=== PATIENT | female | born 1930 | race Caucasian/White ===

== ENCOUNTER 2016-12-21 09:45 | Emergency (ER) | payer MEDICARE ==
[2016-12-21 11:13] VITALS: BP 120/74
--- NOTE | 2016-12-21 11:20 | UC ---
Complaint Female HPI - HPI Summary HPI Summary: c/o burning and pressure, low back pain that started last week. Has been taking trimethoprim with no relief. FSBS this morning fasting- 154, 228 at 1000. multiple allergy to medications. can not check U/A here as patient on pyridium and trimethoprim twice daily from specialist in [place], numerous allergy to meds. can take cefuroxime per patient and her notes from her physician in [facility]. Would like to take that since her trimethoprim and pyridium not getting rid of infection. [ End ] - History Of Current Complaint Chief Complaint: UCGU Stated Complaint: URINARY COMPLAINT Time Seen by Provider: 12/21/16 11:16 Hx Obtained From: Patient Hx Last Menstrual Period: 1968 ?: No Onset/Duration: Gradual Onset Timing: Constant Severity Initially: Mild Severity Currently: Moderate Character: Burning Aggravating Factor(s): Urination Alleviating Factor(s): Nothing Associated Signs And Symptoms: Negative: Fever, Back Pain, Vaginal Bleeding/ Discharge, Vaginal Discharge, Nausea, Vomiting(# Of Episodes =) - Allergies/Home Medications Allergies/Adverse Reactions: Allergies Allergy/AdvReac Type Severity Reaction Status Date / Time Celecoxib [From Celebrex] Allergy Itching Verified 12/21/16 11:02 Ciprofloxacin Allergy Rash And Verified 12/21/16 11:02 Itching Doxycycline Allergy Nausea Verified 12/21/16 11:02 Nitrofurantoin Allergy Hives Verified 12/21/16 11:02 [From Macrobid] Sulfa Drugs Allergy Rash Verified 12/21/16 11:02 Tramadol Allergy Itching Verified 12/21/16 11:02 Amoxicillin [From Augmentin] AdvReac "belly Verified 12/21/16 11:02 ache" Clavulanic Acid AdvReac "belly Verified 12/21/16 11:02 [From Augmentin] ache" Metronidazole AdvReac stomach Verified 12/21/16 11:02 upset lidoderm patch Allergy Rash And Uncoded 12/21/16 11:02 Itching metanex Allergy Itching Uncoded 12/21/16 11:02 naproxen or combined with Allergy Unknown Uncoded 12/21/16 11:02 Detrol LA Reaction Details Home Medications: Home Medications Insulin GLARGINE(*) [Lantus(*)] 34 units SUBCUT Q24H 12/21/16 [History Confirmed 12/21/16] Insulin Lispro [Humalog] 4 unit SC DAILY 12/21/16 [History Confirmed 12/21/16] Phenazopyridine TAB* [Pyridium 100 mg TAB*] 100 mg PO TID 12/21/16 [History Confirmed 12/21/16] Trimethoprim TAB* 100 mg PO BID 12/21/16 [History Confirmed 12/21/16] PMH/Surg Hx/FS Hx/Imm Hx Previously Healthy: Yes Endocrine History Of: Reports: Diabetes - type 2 Cardiovascular History Of: Reports: 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 L4- L5, cardiac stent 08/29/14 Other Surgical History: recurrent UTI, goes to Urology - Family History Known Family History: Positive: None - Social History Occupation: Retired Lives: With Family Alcohol Use: None Substance Use Type: None Smoking Status (MU): Never Smoked Tobacco Household Exposure Type: Cigarettes - Immunization History Most Recent Influenza Vaccination: May 2013 Review of Systems Constitutional: Negative Skin: Negative Eyes: Negative ENT: Negative Respiratory: Negative Cardiovascular: Negative Gastrointestinal: Negative Genitourinary: Dysuria Motor: Negative Neurovascular: Negative Musculoskeletal: Negative Neurological: Negative Psychological: Negative All Other Systems Reviewed And Are Negative: Yes Physical Exam Triage Information Reviewed: Yes Appearance: Well-Appearing, No Pain Distress, Well-Nourished Vital Signs: Initial Vital Signs Temp 98.8 F 12/21/16 11:06 Pulse 72 12/21/16 11:06 Resp 20 12/21/16 11:06 BP 120/74 12/21/16 11:06 Pulse Ox 98 12/21/16 11:06 Vital Signs Reviewed: Yes Eye Exam: Normal ENT Exam: Normal Dental Exam: Normal Neck exam: Normal Neck: Positive: 1 Respiratory Exam: Normal Cardiovascular Exam: Normal Abdominal Exam: Normal Abdomen Description: Positive: Nontender, No Organomegaly, Soft. Negative: CVA Tenderness (R), CVA Tenderness (L), Distended, Guarding Musculoskeletal Exam: Normal Neurological Exam: Normal Psychological Exam: Normal Skin Exam: Normal Complaint Female Dx - Course Course Of Treatment: Recurrent UTI. Previously on trimethoprim for 2 years or longer. Since then has been taking med prn for about 2-3 weeks prn dysuria. SHe showed me a note from her medical history on 3x5 cards indicating she can tolerate cefuroxime and no resistance to this. She desires to start meds at this time and aware to f/u with PCP and Urology. - Differential Dx/Diagnosis Differential Diagnosis/HQI/PQRI: Ureteral Stone, Urinary Tract Infection Provider Diagnoses: Recurrent UTI Discharge - Discharge Plan Condition: Fair Disposition: HOME Prescriptions: Cefuroxime 500 MG(NF) 500 mg PO BID #20 tab Patient Education Materials: Urinary Tract Infection in Women (ED) Referrals: Crow WILKERSON,Tim Goldberg [Primary Care Provider] - 3 Days (Please follow up with you Urologist as well )
== END 2016-12-21 11:47 | disposition home or self-care (01) ==
LOC: UCCORT 09:45
DX: N39.0 Urinary tract infection, site not specified (principal); Z87.440 Personal history of urinary (tract) infections; E11.9 Type 2 diabetes mellitus without complications; Z79.4 Long term (current) use of insulin; Z95.0 Presence of cardiac pacemaker; R00.1 Bradycardia, unspecified; Z95.5 Presence of coronary angioplasty implant and graft; I10 Essential (primary) hypertension; J44.9 Chronic obstructive pulmonary disease, unspecified; Z88.1 Allergy status to other antibiotic agents; Z88.2 Allergy status to sulfonamides
CPT/HCPCS: 99212; G0463

== ENCOUNTER 2017-01-19 14:34 | Emergency (ER) | payer MEDICARE ==
[2017-01-19 15:03] VITALS: BP 139/66
--- NOTE | 2017-01-19 15:32 | ED ---
Throat Pain/Nasal Congestion - HPI Summary HPI Summary: Pt here w/ recurrent URI sx x 1 month. She has had throat irritation, CONNELLY and sinus pressure w/ otalgia and mild cough on/off x 1 month. Thinks she's getting better then gets worse again. Feels feverish today. Also noted a large drops of yellow/green mucous from her sinus passages into her throat yesterday and today - this relieved pressure each time, but pressure builds back up shortly after. She bought some nasacort today but has not tried this yet. She also admits she' s had allergies in the past this time of year - doesn't take an antihistamine for these. Denies chills, CONNELLY today, N/V/D, rash, ab pain, weakness, dyspnea. Feels everything is in her head and feels like a sinus infection. NOTE: DM has been poorly controlled over the past month - running 160's-230's. Has been working w/ her PCP to get this under better control. After discussion today, this elevation may be from persistent URI this past month. Sick contact - son with whom she lives. - History of Current Complaint Chief Complaint: UCRespiratory Time Seen by Provider: 01/19/17 15:10 Hx Obtained From: Patient - Allergies/Home Medications Allergies/Adverse Reactions: Allergies Allergy/AdvReac Type Severity Reaction Status Date / Time Celecoxib [From Celebrex] Allergy Itching Verified 01/19/17 15:02 Ciprofloxacin Allergy Rash And Verified 01/19/17 15:02 Itching Nitrofurantoin Allergy Hives Verified 01/19/17 15:02 [From Macrobid] Sulfa Drugs Allergy Rash Verified 01/19/17 15:02 Tramadol Allergy Itching Verified 01/19/17 15:02 Amoxicillin [From Augmentin] AdvReac "belly Verified 01/19/17 15:02 ache" Clavulanic Acid AdvReac "belly Verified 01/19/17 15:02 [From Augmentin] ache" Doxycycline AdvReac Nausea Verified 01/19/17 15:02 Metronidazole AdvReac stomach Verified 01/19/17 15:02 upset lidoderm patch Allergy Rash And Uncoded 12/21/16 11:02 Itching metanex Allergy Itching Uncoded 12/21/16 11:02 naproxen or combined with Allergy Unknown Uncoded 12/21/16 11:02 Detrol LA Reaction Details PMH/Surg Hx/FS Hx/Imm Hx Previously Healthy: Yes Endocrine/Hematology History: Reports: 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 Cardiovascular History: Reports: Hx Hypertension Respiratory History: Reports: Hx Chronic Obstructive Pulmonary Disease (COPD) Denies: Hx Lung Cancer GI History: Denies: Hx Urosepsis History: Denies: Hx Kidney Stones, Hx Renal Disease Sensory History: Reports: Hx Contacts or Glasses, Hx Hearing Aid Opthamlomology History: Reports: Hx Contacts or Glasses - Cancer History Cancer Type, Location and Year: Right breast mastectomy 1989 [facility] - Surgical History Surgery Procedure, Year, and Place: Right mastectomy 1989; appy, tubal 65, hysterectomy 69, bladder repair 80, kidney cysto , right hand tendon 87, 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 L4- L5, cardiac stent 08/29/14 Infectious Disease History: No Infectious Disease History: Reports: Hx Shingles - yr 1999 Denies: History Other Infectious Disease, Traveled Outside the [place] in Last 30 Days - Family History Known Family History: Positive: None - Social History Occupation: Retired Lives: With Family - son Alcohol Use: None Hx Substance Use: No Substance Use Type: Reports: None Hx Tobacco Use: No Smoking Status (MU): Never Smoked Tobacco Review of Systems Positive: Fever - see HPI. Negative: Chills Negative: Photophobia, Blurred Vision, Diplopia, Drainage, Erythema ENT: Other - see HPI Negative: Chest Pain Positive: Cough - see HPI. Negative: Shortness Of Breath Gastrointestinal: Negative Positive: no symptoms reported Musculoskeletal: Negative Skin: Negative Neurological: Negative Psychological: Normal All Other Systems Reviewed And Are Negative: Yes Physical Exam Triage Information Reviewed: Yes Vital Signs On Initial Exam: Initial Vitals Temp Pulse Resp BP Pulse Ox 99.4 F 72 16 139/66 97 01/19/17 14:57 01/19/17 14:57 01/19/17 14:57 01/19/17 14:57 01/19/17 14:57 Vital Signs Reviewed: Yes Appearance: Positive: Well-Appearing, No Pain Distress, Well-Nourished Skin: Positive: Warm, Dry - no rash observed Head/Face: Positive: Normal Head/Face Inspection - sinuses NTTP Eyes: Positive: Normal, EOMI. Negative: Conjunctiva Inflammed, Discharge ENT: Positive: Hearing grossly normal, Pharynx normal - mild PND, Nasal congestion - boggy turbinates, TMs normal Neck: Positive: Supple, Nontender, No Lymphadenopathy Respiratory/Lung Sounds: Positive: Clear to Auscultation, Breath Sounds Present. Negative: Rales, Rhonchi, Wheezes Cardiovascular: Positive: Murmur, S1, S2 Abdomen Description: Positive: Nontender, Soft Bowel Sounds: Positive: Present Musculoskeletal: Positive: Normal, Strength/ROM Intact Neurological: Positive: Normal, Sensory/Motor Intact, Alert, Oriented to Person Place, Time, CN Intact II-III Psychiatric: Positive: Normal Diagnostics - Vital Signs Vital Signs Temp Pulse Resp BP Pulse Ox 01/19/17 14:57 99.4 F 72 16 139/66 97 - Laboratory Lab Statement: Any lab studies that have been ordered have been reviewed, and results considered in the medical decision making process. EENT Course/Dx - Course Course Of Treatment: Pt presents w/ URI sx intermittently over the past 1 month. Today has subjective fever and reports 2 x of yellow/green mucous in PND. Glucose has been elevated during time of sx. Due to multiple anbx allergies , will provide levaquin. Also encouraged she try nasacort as directed to reduce nasal congestion and help w/ pressure. Monitor glucose levels as anbx can reduce glucose which may be a good thing now, but to caution too low glucose level. Follow-up with PCP. If worse, return to or go to ED. Pt agrees w/ plan. - Diagnoses Provider Diagnoses: Rhinosinusitis Discharge - Discharge Plan Condition: Stable Disposition: HOME Prescriptions: Levofloxacin TAB* [Levaquin TAB*] 500 mg PO DAILY #7 tab Patient Education Materials: Rhinosinusitis (ED) Referrals: Crow WILKERSON,Tim Goldberg [Primary Care Provider] - Additional Instructions: You appear to have a persistent URI which has lead to sinusitis. You may try saline nasal washes as well as the nasacort nasal spray you recently purchased ( use as directed to help with pain/pressure). An antibiotic has been prescribed as well. You may try nasal spray first and if no relief, then start antibiotic or simply start today. This has been sent to your pharmacy. Monitor glucose levels as antibiotics can reduce glucose which may be a good thing now, but caution too low glucose level. Follow-up with PCP this week in the event he/she wants you to have a longer course of antibiotics. *If your blood glucose drops too low, take a sugary snack immediately and follow -up with medical staff. *IF you have trouble breathing or swallowing and/or chest pain, go to the ED
== END 2017-01-19 15:52 | disposition home or self-care (01) ==
LOC: UCCORT 14:34
DX: J32.9 Chronic sinusitis, unspecified (principal); E11.9 Type 2 diabetes mellitus without complications; Z79.4 Long term (current) use of insulin; Z79.84 Long term (current) use of oral hypoglycemic drugs; J44.9 Chronic obstructive pulmonary disease, unspecified; Z88.1 Allergy status to other antibiotic agents; Z88.6 Allergy status to analgesic agent; Z88.2 Allergy status to sulfonamides; Z88.8 Allergy status to other drugs, medicaments and biological substances
CPT/HCPCS: 99212; G0463

== ENCOUNTER 2017-04-28 08:44 | Emergency (ER) | payer MEDICARE ==
[2017-04-28 08:59] VITALS: BP 128/69
--- NOTE | 2017-04-28 09:13 | UC ---
Throat Pain/Nasal Ken[place] HPI - HPI Summary HPI Summary: oral sores x 3 days painful sores on the roof of the mouth, discolored tongue no fever, - History of Current Complaint Chief Complaint: UCGeneralIllness Stated Complaint: SORE MOUTH Time Seen by Provider: 04/28/17 08:57 Hx Obtained From: Patient Hx Last Menstrual Period: 1970 Onset/Duration: Gradual Onset, Lasting Days - 3, Still Present Severity: Moderate Cough: None Associated Signs & Symptoms: Positive: Negative - Allergies/Home Medications Allergies/Adverse Reactions: Allergies Allergy/AdvReac Type Severity Reaction Status Date / Time Celecoxib [From Celebrex] Allergy Itching Verified 04/28/17 08:49 Ciprofloxacin Allergy Rash And Verified 04/28/17 08:49 Itching Nitrofurantoin Allergy Hives Verified 04/28/17 08:49 [From Macrobid] Sulfa Drugs Allergy Rash Verified 04/28/17 08:49 Tramadol Allergy Itching Verified 04/28/17 08:49 Amoxicillin [From Augmentin] AdvReac "belly Verified 04/28/17 08:49 ache" Clavulanic Acid AdvReac "belly Verified 04/28/17 08:49 [From Augmentin] ache" Doxycycline AdvReac Nausea Verified 04/28/17 08:49 Metronidazole AdvReac stomach Verified 04/28/17 08:49 upset lidoderm patch Allergy Rash And Uncoded 04/28/17 08:49 Itching metanex Allergy Itching Uncoded 04/28/17 08:49 naproxen or combined with Allergy Unknown Uncoded 04/28/17 08:49 Detrol LA Reaction Details Home Medications: Home Medications Lansoprazole [Prevacid] 30 mg PO DAILY 04/28/17 [History Confirmed 04/28/17] Sitagliptin Phosphate [Januvia] 100 mg PO DAILY 04/28/17 [History Confirmed 05/07] Trimethoprim TAB* 100 mg PO DAILY 04/28/17 [History Confirmed 04/28/17] PMH/Surg Hx/FS Hx/Imm Hx Endocrine History: Diabetes Cardiovascular History: Cardiac Disease - Surgical History Surgical History: Yes Surgery Procedure, Year, and Place: Right mastectomy 1989; appy, tubal 67, hysterectomy 69, bladder repair 80, kidney cysto , right hand tendon 87, 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 L4- L5, cardiac stent 08/29/14 Other Surgical History: recurrent UTI, goes to Urology - Family History Known Family History: Positive: Hypertension, Diabetes - Social History Alcohol Use: None Substance Use Type: None Smoking Status (MU): Never Smoked Tobacco Household Exposure Type: Cigarettes - Immunization History Most Recent Influenza Vaccination: May 2013 Review of Systems Constitutional: Negative Skin: Negative Eyes: Negative ENT: Negative Respiratory: Negative Cardiovascular: Negative All Other Systems Reviewed And Are Negative: Yes Physical Exam Triage Information Reviewed: Yes Appearance: Well-Appearing, No Pain Distress, Well-Nourished Vital Signs: Initial Vital Signs Temp 98.9 F 04/28/17 08:53 Pulse 75 04/28/17 08:53 Resp 18 04/28/17 08:53 BP 128/69 04/28/17 08:53 Pulse Ox 97 04/28/17 08:53 Vital Signs Reviewed: Yes Eyes: Positive: Conjunctiva Clear ENT: Positive: Normal ENT inspection, Hearing grossly normal, Pharynx normal, Other: - + erythema of the roof of the mouth , mild whitish discoloration of the tongue Dental Exam: Normal Neck: Positive: Supple, Nontender, No Lymphadenopathy Respiratory: Positive: Chest non-tender, Lungs clear, Normal breath sounds Cardiovascular: Positive: RRR, No Murmur, Pulses Normal Abdominal Exam: Normal Skin Exam: Normal Throat Pain/Nasal Course/Dx - Differential Dx/Diagnosis Provider Diagnoses: oral thrush Discharge - Discharge Plan Condition: Stable Disposition: HOME Prescriptions: Nystatin SUSPENSION* 5 ml PO BID #100 ml Patient Education Materials: Oral Candidiasis (ED) Referrals: Crow WILKERSON,Tim Goldberg [Primary Care Provider] - 7 Days
== END 2017-04-28 09:30 | disposition home or self-care (01) ==
LOC: UCCORT 08:44
DX: B37.0 Candidal stomatitis (principal); E11.9 Type 2 diabetes mellitus without complications; I51.9 Heart disease, unspecified; Z88.1 Allergy status to other antibiotic agents; Z88.5 Allergy status to narcotic agent; Z88.2 Allergy status to sulfonamides; Z77.22 Contact with and (suspected) exposure to environmental tobacco smoke (acute) (chronic)
CPT/HCPCS: 99212; G0463

== ENCOUNTER 2017-06-06 09:07 | Emergency (ER) | payer MEDICARE ==
[2017-06-06 09:26] VITALS: BP 109/66
--- NOTE | 2017-06-06 09:54 | UC ---
Complaint Female HPI - HPI Summary HPI Summary: She has a hx of bladder surgery and is followed by Dr. Cabrales. she has had dysuria and frequency for the last 24 hours. She denies fever. she has no flank pain. no vomiting. she states this feels similar to prior UTI. she has had success with cefuroxime. - History Of Current Complaint Chief Complaint: UCGU Stated Complaint: UTI SYMPTOMS Time Seen by Provider: 06/06/17 09:12 Hx Obtained From: Patient Hx Last Menstrual Period: 1970 Onset/Duration: Gradual Onset, Lasting Days Timing: Constant Severity Initially: Mild Severity Currently: Moderate Character: Sharp Aggravating Factor(s): Urination Alleviating Factor(s): Nothing Associated Signs And Symptoms: Negative: Vaginal Bleeding/Discharge, Vaginal Discharge, Nausea, Vomiting(# Of Episodes =), Genital Swelling, Genital Blisters Related Hx: Similar Episode/Dx as: - uti. - Allergies/Home Medications Allergies/Adverse Reactions: Allergies Allergy/AdvReac Type Severity Reaction Status Date / Time Celecoxib [From Celebrex] Allergy Itching Verified 06/06/17 09:14 Ciprofloxacin Allergy Rash And Verified 06/06/17 09:14 Itching Nitrofurantoin Allergy Hives Verified 06/06/17 09:14 [From Macrobid] Sulfa Drugs Allergy Rash Verified 06/06/17 09:14 Tramadol Allergy Itching Verified 06/06/17 09:14 Amoxicillin [From Augmentin] AdvReac "belly Verified 06/06/17 09:14 ache" Clavulanic Acid AdvReac "belly Verified 06/06/17 09:14 [From Augmentin] ache" Doxycycline AdvReac Nausea Verified 06/06/17 09:14 Metronidazole AdvReac stomach Verified 06/06/17 09:14 upset lidoderm patch Allergy Rash And Uncoded 06/06/17 09:14 Itching metanex Allergy Itching Uncoded 06/06/17 09:14 naproxen or combined with Allergy Unknown Uncoded 06/06/17 09:14 Detrol LA Reaction Details Home Medications: Home Medications Furosemide [Lasix] 0.5 mg DAILY 06/06/17 [History Confirmed 06/06/17] Glipizide [Glipizide ER] 5 mg QAM 06/06/17 [History Confirmed 06/06/17] PMH/Surg Hx/FS Hx/Imm Hx Previously Healthy: No - bladder infections. 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 L4- L5, cardiac stent 08/29/14 Other Surgical History: recurrent UTI, goes to Urology - Family History Known Family History: Positive: None, Hypertension, Diabetes - Social History Alcohol Use: None Substance Use Type: None Smoking Status (MU): Never Smoked Tobacco Household Exposure Type: Cigarettes - Immunization History Most Recent Influenza Vaccination: 2017 Review of Systems Genitourinary: Dysuria, Frequency All Other Systems Reviewed And Are Negative: Yes Physical Exam Triage Information Reviewed: Yes Appearance: Well-Appearing, No Pain Distress, Well-Nourished Vital Signs: Initial Vital Signs Temp 97.9 F 06/06/17 09:19 Pulse 78 06/06/17 09:19 Resp 18 06/06/17 09:19 BP 109/66 06/06/17 09:19 Pulse Ox 98 06/06/17 09:19 Vital Signs Reviewed: Yes Eye Exam: Normal ENT Exam: Normal Neck exam: Normal Respiratory Exam: Normal Cardiovascular Exam: Normal Abdominal Exam: Normal - no cvat. Musculoskeletal Exam: Normal Neurological Exam: Normal Psychological Exam: Normal Skin Exam: Normal Complaint Female Dx - Course Course Of Treatment: she agrees to start diflucan and cefuroxime but will return here or ed for any signs of worsening or fever. she agrees to f/u with urology next week. - Differential Dx/Diagnosis Differential Diagnosis/HQI/PQRI: Appendicitis, Cervicitis, Ovarian Cyst, Ovarian Torsion, Pelvic Inflammatory Disease, Ureteral Stone, Urinary Tract Infection Provider Diagnoses: uti Discharge - Discharge Plan Condition: Good Disposition: HOME Prescriptions: Fluconazole [Diflucan 150 MG (NF)] 150 mg PO ONCE #1 tab ceFUROXime TAB(*) [Ceftin TAB 250 MG(*)] 500 mg PO BID #20 tab Patient Education Materials: Dysuria (ED) Referrals: Crow WILKERSON,Tim Goldberg [Primary Care Provider] - Additional Instructions: follow up with your urologist this week as we discussed. return here or to the ED for any signs of worsening.
[2017-06-06 16:39] LABS: Urine Bacteria 1+ (Absent)
== END 2017-06-06 09:55 | disposition home or self-care (01) ==
LOC: UCCORT 09:07
DX: N39.0 Urinary tract infection, site not specified (principal); Z88.1 Allergy status to other antibiotic agents; Z88.8 Allergy status to other drugs, medicaments and biological substances; Z77.22 Contact with and (suspected) exposure to environmental tobacco smoke (acute) (chronic)
CPT/HCPCS: 81003; 81015; 87077; 87086; 87186; 99212; G0463